=== PATIENT | male | born 1945 | race Caucasian/White ===

== ENCOUNTER 2016-07-25 09:53 | Inpatient (IN) | payer OTHER, BC ==
[2016-07-25 10:02] VITALS: BMI 23.8
--- NOTE | 2016-07-25 10:35 | PDOC ---
History of Present Illness <Cindy Castro - Last Filed: 07/25/16 13:14> - General History Source: Patient Exam Limitations: No Limitations - History of Present Illness Initial Comments: 07/25/16 10:41 71y F hx of htn, hl, presents with R 1st toe pain. The pt was sparring and as he kicked, his toe got caught on the mat. Pt complaining of pain to his toe originaly but has since improved. currently denies any pain, numbnes/tingling/ weakness. No other pain or injuries elsewhere. last tetanus man years ago. <Josesito Pantoja - Last Filed: 07/27/16 07:22> - General Chief Complaint: Injury Stated Complaint: RT TOE PAIN Time Seen by Provider: 07/25/16 10:34 Past History <Cindy Castro - Last Filed: 07/25/16 13:14> - Past Medical History Anemia: No Asthma: No Cancer: No Cardiac Disorders: No CVA: Yes (1998) COPD: No CHF: No Dementia: No Diabetes: No GI Disorders: No Disorders: No HTN: Yes Hypercholesterolemia: Yes Liver Disease: No Seizures: No Thyroid Disease: No - Surgical History Abdominal Surgery: No Appendectomy: No Cardiac Surgery: No Cholecystectomy: No Lung Surgery: No Neurologic Surgery: No Orthopedic Surgery: No - Psycho/Social/Smoking Cessation Hx Suicidal Ideation: No Smoking History: Never smoked Have you smoked in the past 12 months: No If you are a former smoker, when did you quit?: 20 YEARS AGO Information on smoking cessation initiated: No Hx Alcohol Use: No Drug/Substance Use Hx: Yes (2 glasses of wine) Substance Use Type: None Hx Substance Use Treatment: No <Josesito Pantoja - Last Filed: 07/27/16 07:22> - Past Medical History Allergies/Adverse Reactions: Allergies Allergy/AdvReac Type Severity Reaction Status Date / Time No Known Drug Allergies Allergy Verified 07/25/16 10:02 Home Medications: Ambulatory Orders Amlodipine Besylate 5 mg PO ASDIR 06/04/15 Aspirin [ASA -] 81 mg PO DAILY 06/04/15 Atorvastatin Calcium 10 mg PO ASDIR 06/04/15 [place]-3 Fatty Acids/Fish Oil [Fish Oil 1,000 mg Softgel] 3 each PO DAILY Cholecalciferol (Vitamin D3) [Vitamin D] 2,000 unit PO ACDIN 06/21/15 Review of Systems - Review of Systems Able to Perform ROS?: Yes Comments:: 07/25/16 10:43 Constitutional - no reported Fever, Chills, weakness, HEENT: no reported vision changes, sore throat Respiratory: no reported cough, sob, hemoptysis Cardiac: no reported chest pain, palpitations, light headedness, leg swelling Abd/GI: no reported abd pain, nausea, vomiting, blood per rectum, melena, diarrhea : no reported dysuria, frequency, discharge Musculskelatal - +R toe pain no reported back pain, joint swelling skin - no reported bruising, erythema, rash neurological: no reported headache, numbness, focal weakness, tingling, ataxia, weakness hematologic: no reported anemia, easy bruising, easy bleeding <Josesito Pantoja - Last Filed: 07/27/16 07:22> *Physical Exam - Vital Signs Last Vital Signs Temp Pulse Resp BP Pulse Ox 97.5 F L 71 18 157/83 99 07/25/16 10:00 07/25/16 10:00 07/25/16 10:00 07/25/16 10:00 07/25/16 10:00 <Cindy Castro - Last Filed: 07/25/16 13:14> - Vital Signs Last Vital Signs Temp Pulse Resp BP Pulse Ox 97.5 F L 71 18 157/83 99 07/25/16 10:00 07/25/16 10:00 07/25/16 10:00 07/25/16 10:00 07/25/16 10:00 - Physical Exam Comments: 07/25/16 10:45 GENERAL: The patient is awake, alert, and fully oriented, Nontoxic - in no acute distress. HEAD: Normocephalic, atraumatic. EXTREMITIES: Open dislocation of R great toe with exposed joint surface. sensation intact distall, cap refill <2 seconds in toe. No tenderness of ankles/ proximal foot, ankle/hips. Bleeding is controlled. <Josesito Pantoja - Last Filed: 07/27/16 07:22> Procedures - Consent Consent obtained: Verbal - Joint Reduction Right Joint Reduction Site: right: Finger (big toe) Pre-Procedure NV Exam: normal Conscious Sedation: No Finger Block: Thumb Reduction Attempts: 1 Anesthetic: 2% Lidocaine Amount (mL): 5 Post-Procedure NV Exam: normal Complications: No Post Joint Reduction Film: joint reduced Splint: Yes Immobilized: Yes Progress: 07/25/16 11:44 s/p irrgation of open dislocation with 1L of saline with betadine - Laceration/Wound Repair Right 1st digit Toe Wound Length: 2.6 to 5.0 cm Wound Explored: clean Wound's Depth, Shape: irregular Irrigated w/ Saline: Yes Betadine Prep: Yes Anesthesia: 1% Lidocaine Amount of Anesthetic (ccs): 5 Wound Debrided: minimal Wound Repaired With: Sutures Suture Size/Type: 3:0, nylon Number of Sutures: 3 Layer Closure: No Sterile Dressing Applied: Yes (xeroform/) Splint Applied: Yes (post op boot) <Josesito Pantoja - Last Filed: 07/27/16 07:22> Heart Score/ECG Review - ECG Impressions Comment:: 07/25/16 13:16 Twelve-lead EKG was performed and reviewed by me. There is normal sinus rhythm with a rate of 58 The axis is normal. The intervals are normal. There is normal R wave progression There are no ST or T wave abnormalities. Impression: Sinus bradycardia <Josesito Pantoja - Last Filed: 07/27/16 07:22> ED Treatment Course - LABORATORY CBC & Chemistry Diagram: 07/25/16 12:35 07/25/16 12:35 - RADIOLOGY Radiology Studies Ordered: 07/25/16 12:01 Toe XRay As reviewed by Dr. Sami Bourgeois IMPRESSION: Dislocation at great toe interphalangeal joint. Fracture at base proximal phalanx great toe. <Cindy Castro - Last Filed: 07/25/16 13:14> - LABORATORY CBC & Chemistry Diagram: 07/26/16 13:45 07/26/16 13:45 <Josesito Pantoja - Last Filed: 07/27/16 07:22> Medical Decision Making - Medical Decision Making 07/25/16 11:32 Dr. Nielsen was called at his office at 11:26. Dr. Woodruff is the covering physician. Awaiting call back. 07/25/16 12:00 Dr. Woodruff was called at his office at 12:00. Awaiting call back. 07/25/16 13:14 Dr. Woodruff returned call and spoke to Dr. Pantoja about the patient's care. Dr. Diggs was called at his office at 1:05. Awaiting call back. <Cindy Castro - Last Filed: 07/25/16 13:14> - Medical Decision Making 07/25/16 11:40 71y M with open dislocation of 1st big toe at the interphalangeal joint of r foot with most of articular surface of proximal phalanges visible xray revieals fracture at base of proximal phalanges large transverse laceration over the IP joint sensation intact in distal toe. digital block performed open joint surface was irrigated with 1L of saline with betadine dislocation was successfully reduced after 1 attempt, sensation intact distally after reduction pt given ancef and tetanus was uptodate. 07/25/16 11:45 07/25/16 14:[address] woodruff and dr. diggs agree w/ management, recommended closure with 3-4 tacking sutures 3 stitches placed to tack area closed for stabilization. recommend admission for iv abx as pt is at high risk for infection. Case discussed in detail with Dr. Dougherty including history, physical exam and ancillary studies. Admitting physician has assumed care for the patient, will follow all pending diagnostics and will complete the evaluation and treatment. <Josesito Pantoja - Last Filed: 07/27/16 07:22> *DC/Admit/Observation/Transfer <Cindy Castro - Last Filed: 07/25/16 13:14> - Discharge Dispostion Admit: Yes <Josesito Pantoja - Last Filed: 07/27/16 07:22> Diagnosis at time of Disposition: Dislocation of toe, right, open Qualifiers: Encounter type: initial encounter Qualified Code(s): S93.104A - Unspecified dislocation of right toe(s), initial encounter Fracture of right toe Qualifiers: Encounter type: initial encounter Toe: great toe Fracture type: open Phalanx: proximal Fracture alignment: nondisplaced Qualified Code(s): S92.414B - Nondisplaced fracture of proximal phalanx of right great toe, initial encounter for open fracture - Referrals
[2016-07-25] MEDS ORDERED: CEFAZOLIN 1 GM in DEXTROSE 5%-WATER - 50 ML IVPB ONE (10:46)
[2016-07-25] MEDS ORDERED: LIDOCAINE HCL 2% (20ML MULTI-DOSE VIAL) NR ONE (10:58)
[2016-07-25] MEDS ORDERED: CEFAZOLIN (PRE-DOCKED) 50 ML IVPB ONE (12:03)
[2016-07-25 12:42] LABS: EOSINOPHIL 2.7 % (0-4.5); MCH 30.1 pg (25.7-33.7); MCHC 33.6 g/dl (32.0-35.9); MEAN CELL VOLUME 89.6 fl (80-96); MEAN PLT VOLUME 6.9 fl (7.5-11.1); NEUTROPHILS 66.9 % (42.8-82.8); PLATELET COUNT 244 K/MM3 (134-434); RDW 13.5 % (11.9-15.9); WHITE BLOOD COUNT 6.6 K/mm3 (4.0-10.0)
[2016-07-25 13:03] LABS: INR 1.15 (0.82-1.09); PROTHROMBIN TIME (PATIENT) 12.7 SEC (9.98-11.88)
--- NOTE | 2016-07-25 13:10 | HP ---
Admitting History and Physical - Primary Care Physician PCP: Taylor Dougherty S - Admission Chief Complaint: R big toe open fracture History of Present Illness: 71y F hx of htn, high chol, presents with R 1st toe pain. The pt was sparring and as he kicked, his toe got caught on the mat. Pt complaining of pain to his toe originaly but has since improved. currently denies any pain, numbness/ tingling/weakness. No other pain or injuries elsewhere. last tetanus many years ago. History Source: Patient, Medical Record Limitations to Obtaining History: No Limitations - Past Medical History Cardiovascular: Yes: HTN, Hyperlipdemia - Smoking History Smoking history: Never smoked Have you smoked in the past 12 months: No If you are a former smoker, when did you quit?: 20 YEARS AGO - Alcohol/Substance Use Hx Alcohol Use: No History of Substance Use: reports: None - Social History Usual Living Arrangement: Yes: With Spouse ADL: Independent History of Recent Travel: No Home Medications - Allergies Allergies/Adverse Reactions: Allergies Allergy/AdvReac Type Severity Reaction Status Date / Time No Known Drug Allergies Allergy Verified 07/25/16 10:02 - Home Medications Home Medications: Ambulatory Orders Amlodipine Besylate 5 mg PO ASDIR 06/04/15 Aspirin [ASA -] 81 mg PO DAILY 06/04/15 Atorvastatin Calcium 10 mg PO ASDIR 06/04/15 [place]-3 Fatty Acids/Fish Oil [Fish Oil 1,000 mg Softgel] 3 each PO DAILY Cholecalciferol (Vitamin D3) [Vitamin D] 2,000 unit PO ACDIN 06/21/15 Family Disease History - Family Disease History Family History: Unremarkable Review of Systems - Review of Systems Constitutional: denies: Chills, Fever, Lethargy Eyes: denies: Blurred Vision, Double Vision HENT: denies: Difficult Swallowing, Ear Pain Neck: denies: Stiffness, Tenderness Cardiovascular: denies: Chest Pain, Shortness of Breath Respiratory: denies: Cough, SOB Gastrointestinal: reports: Vomiting. denies: Abdominal Pain, Bloating, Constipation, Diarrhea Genitourinary: denies: Dysuria, Flank Pain Musculoskeletal: denies: Back Pain, Extremity Pain Neurological: denies: Change in LOC, Change in Speech, Confusion, Pre-Existing Deficit, Seizure, Syncope, Unsteady Gait Hematology/Lymphatic: denies: Easily Bruised, Excessive Bleeding Psychiatric: denies: Altered Sleep Pattern, Anxiety, Depression, Suicidal Physical Examination Vital Signs: Vital Signs Temperature 97.5 F L 07/25/16 10:00 Pulse Rate 71 07/25/16 10:00 Respiratory Rate 18 07/25/16 10:00 Blood Pressure 157/83 07/25/16 10:00 O2 Sat by Pulse Oximetry (%) 99 07/25/16 10:00 Constitutional: Yes: No Distress, Calm Eyes: Yes: Conjunctiva Clear HENT: Yes: Atraumatic Neck: Yes: Supple Cardiovascular: Yes: Regular Rate and Rhythm Respiratory: Yes: CTA Bilaterally Gastrointestinal: Yes: Soft. No: Distention, Tenderness Musculoskeletal: No: Joint Stiffness, Joint Swelling Extremities: Yes: Other (R big toe with open fracture s/p reduction and wound cleaning in ER had exposed bone per ER dr). No: Cold, Cool Edema: No Peripheral Pulses WNL: Yes Neurological: Yes: WNL, Alert, Oriented ...Motor Strength: WNL Psychiatric: Yes: WNL, Alert, Oriented. No: Agitated, Suicidal Ideation Labs: CBC, BMP 07/25/16 12:35 Imaging - Results X-ray: Report Reviewed Other: Report Reviewed Assessment/Plan 71y F hx of htn, high chol presents with R 1st toe pain. The pt was sparring and as he kicked, his toe got caught on the mat. Pt complaining of pain to his toe originally but has since improved. currently denies any pain, numbness/ tingling/weakness. No other pain or injuries elsewhere. xrays c/w R big toe fracture, by exam open fracture with exposed bone tetanus shot given in ER PAIN meds prn IV antibiotics wound cleaned and reduced in ER admit for ID and ortho/podiatry eval d/w pt and staff, d/w at bedside
[2016-07-25] MEDS ORDERED: ACETAMINOPHEN 325 MG TABLET (FP) PO PRN (13:12)
[2016-07-25] MEDS ORDERED: HYDROmorphone HCL CARPU-JECT 1 MG/1 ML DISP.SYRIN IVPB PRN (13:12)
[2016-07-25 13:14] LABS: ALBUMIN 3.8 g/dl (3.4-5.0); ANION GAP 8 (8-16); CALCIUM 8.9 mg/dL (8.5-10.1); CO2 29 mmol/L (21-32); GLUCOSE,RANDOM 91 mg/dL (74-106)
[2016-07-25 13:16] LABS: ALK PHOS 54 U/L (45-117); BILIRUBIN,TOTAL 0.6 mg/dL (0.2-1.0); CREATININE 0.9 mg/dL (0.7-1.3); SGOT/AST 19 U/L (15-37); SGPT/ALT 26 U/L (12-78); TOT PROT 6.6 g/dl (6.4-8.2)
[2016-07-25] MEDS ORDERED: DIPHTH,PERTUSS(ACELL),TET VAC 0.5 ML VIAL IM ONE (14:06)
[2016-07-25] MEDS ORDERED: VANCOMYCIN 1 GRAM (PRE-DOCKED) 1,000 MG/250 ML BAG IVPB ONE (16:15)
[2016-07-25] MEDS: amLODIPine BESYLATE 5 MG TABLET (FP) PO SCH (17:19)
[2016-07-25] MEDS: CEFAZOLIN (PRE-DOCKED) 50 ML IVPB SCH (17:19)
[2016-07-25] MEDS ORDERED: VANCOMYCIN 1 GRAM (PRE-DOCKED) 250 ML IVPB SCH (20:00)
--- NOTE | 2016-07-25 21:00 | EKG ---
Test Reason : Blood Pressure : / mmHG Vent. Rate : 058 BPM Atrial Rate : 058 BPM P-R Int : 202 ms QRS Dur : 090 ms QT Int : 424 ms P-R-T Axes : 013 -21 -01 degrees QTc Int : 416 ms SINUS BRADYCARDIA OTHERWISE NORMAL ECG WHEN COMPARED WITH ECG OF 04-JUN-2015 08:38, CRITERIA FOR SEPTAL INFARCT ARE NO LONGER PRESENT Confirmed by SILVERIO JUNIOR MD ([id number]) on 07/25/2016 9:00:31 PM Referred By: Confirmed By:SILVERIO JUNIOR MD
[2016-07-25] MEDS: HEPARIN NA (PORCINE) 5,000 UNITS/ML 1ML VIAL SQ SCH (21:36)
[2016-07-25] MEDS: ATORVASTATIN CA 10 MG TABLET (FP) PO SCH (21:37)
[2016-07-26] MEDS: CEFAZOLIN (PRE-DOCKED) 50 ML IVPB SCH ×2 (02:08→09:23)
[2016-07-26] MEDS: VANCOMYCIN 1 GRAM (PRE-DOCKED) 250 ML IVPB SCH ×2 (04:41→16:17)
--- NOTE | 2016-07-26 08:46 | CONSULT ---
Consult Consult Specialty:: Podiatry Referred by:: Dr. Dougherty Reason for Consultation:: traumatic dislocation of the right hallux - History of Present Illness Chief Complaint: traumatic dislocation of the right hallux interphalangeal joint History of Present Illness: Yesterday, 07/25/2016 patient was sparring on a karate mat and dislocated his hallux when attempting a kick. He reports he did not feel pain and noticed the injury when he looked down. He was treated in the emergency room yesterday, where copious irrigation was performed followed by reduction into normal anatomic position and placement of 3 cutaneous sutures. Iv antibiotics were given. Patient remains on antibiotics presumably for two days. - History Source History Provided By: Medical Record - Past Medical History Cardio/Vascular: Yes: HTN, Hyperlipdemia - Alcohol/Substance Use Hx Alcohol Use: No History of Substance Use: reports: None - Smoking History Smoking history: Never smoked Have you smoked in the past 12 months: No If you are a former smoker, when did you quit?: 20 YEARS AGO - Social History ADL: Independent History of Recent Travel: No Home Medications - Allergies Allergies/Adverse Reactions: Allergies Allergy/AdvReac Type Severity Reaction Status Date / Time No Known Drug Allergies Allergy Verified 07/25/16 10:02 - Home Medications Home Medications: Ambulatory Orders Amlodipine Besylate 5 mg PO ASDIR 06/04/15 Aspirin [ASA -] 81 mg PO DAILY 06/04/15 Atorvastatin Calcium 10 mg PO ASDIR 06/04/15 [place]-3 Fatty Acids/Fish Oil [Fish Oil 1,000 mg Softgel] 3 each PO DAILY Cholecalciferol (Vitamin D3) [Vitamin D] 2,000 unit PO ACDIN 06/21/15 Physical Exam Vital Signs: Vital Signs Temperature 98.3 F 07/26/16 05:30 Pulse Rate 61 07/26/16 05:30 Respiratory Rate 18 07/25/16 21:00 Blood Pressure 116/70 07/26/16 05:30 O2 Sat by Pulse Oximetry (%) 100 07/25/16 15:07 Musculoskeletal: Yes: Other (Right first mpj is bulbous and rigid limiting weight bearing flexibily of the medial column. this is significant in that weight bearing will put stress on the interphalangeal joint (injured right hallux ipj)) Extremities: Yes: Other (Pedal pulses are +2/4 bilaterally and skin is pink and warm. Temp and temp gradient are normal and equal.) Edema: LLE: Trace, RLE: Trace Integumentary: Yes: Other (skin of the right hallux is pink and temp is normal and equal to the surrounding tissue.) Wound/Incision: Yes: Other (Right hallux dorsal lateral transverse tear measuring 2.5cm long. it overlays the dorsal lateral quadrant of the toe suggesting only that the dorsal lateral neurovascular bundle to the toe was injured. No sign of erythema, edema, necrosis, or drainage is observed.) Assessment/Plan Assessment Clean traumatic open dislocation of the right hallux interphalangeal joint. No sign of infection is noted. Normal anatomic reduction has been achieved. No sign of secondary tissue necrosis is present. Stiffness of the metatarsal phalangeal joint makes it even more important that the injured site be protected from stress until it heals. Plan Patient was advised to ambulate with injured foot in front at all times to prevent body weight from passing over the injured hallux. Patient was advised that no sign of vascular compromise or infection is present in the toe at this time, but continued observation is advisable until the toe heals. Patient was advised to continue on antibiotics PO after discharged. Patient was advised to follow up with me in my office on discharge. I will change the bandage at that time. Patient is not to change the bandage himself. I provided the patient with my office and cell phone information.
[2016-07-26] MEDS: amLODIPine BESYLATE 5 MG TABLET (FP) PO SCH (09:23)
[2016-07-26] MEDS: ASPIRIN 81 MG CHEWABLE TABLETS PO SCH (09:23)
[2016-07-26] MEDS: HEPARIN NA (PORCINE) 5,000 UNITS/ML 1ML VIAL SQ SCH ×2 (09:23→21:35)
--- NOTE | 2016-07-26 10:12 | CONSULT ---
Consult - text type - Consultation Consultation Note: FULL CONSULT DICTATED IMP: LEFT GREAT TOE IP DISLOCATION - OPEN PLAN: IV ABX X 24 HOURS MORE, F/U WITH [employer] UPON DC TOMORROW
--- NOTE | 2016-07-26 11:59 | CONS ---
DATE OF CONSULTATION: DATE OF DICTATION: 07/26/2016 Patient is a 71-year-old male status post tripping and fall, injuring his left great toe. Was seen in the emergency room, where he was diagnosed as having an open left great toe IP fracture/dislocation. Patient was irrigated copiously in the emergency room, where closed reduction was performed. The skin was loosely tacked together with some nylon. The patient was admitted with IV antibiotics and some tetanus. Patient denies smoking or diabetes. PHYSICAL EXAMINATION: Musculoskeletal: He has a transverse laceration on the dorsum of his IP and proximal phalanx, which has been loosely closed with some 3-0 nylon suture. Overall alignment is good. He does have the ability of flexion and extension of his IP and his MP joint. Brisk capillary refill. Warm extremity. No erythema, drainage. X-rays reviewed; showed the pre and postreduction x-rays of his IP dislocation of his great toe. There is question of wether there is a small corner fracture at the proximal lateral border of his proximal phalanx. IMPRESSION: Open dislocation of his left great toe. PLAN: Patient should get another 24 hours of IV antibiotics, postoperative shoe, and follow up as an outpatient with manager commercial. I believe the patient already has an appointment with Dr. Galo upon discharge tomorrow. BENI LUCAS M.D. [id number]
--- NOTE | 2016-07-26 12:58 | PN ---
Progress Note, Physician History of Present Illness: Pt. w/o fever, chills, right toe pain, right foot pain. Pt. w/o SOB, CP, palp, abd pain, diarrhea - Current Medication List Current Medications: Active Medications Acetaminophen (Tylenol -) 650 mg PO Q6H PRN PRN Reason: PAIN LEVEL 1-5 Amlodipine Besylate (Norvasc -) 5 mg PO DAILY [facility] Last Admin: 07/26/16 09:23 Dose: 5 mg Aspirin (Asa -) 81 mg PO DAILY [facility] Last Admin: 07/26/16 09:23 Dose: 81 mg Atorvastatin Calcium (Lipitor -) 10 mg PO HS [facility] Last Admin: 07/25/16 21:37 Dose: 10 mg Heparin Sodium (Porcine) (Heparin -) 5,000 unit SQ BID [facility] Last Admin: 07/26/16 09:23 Dose: 5,000 unit Hydromorphone HCl (Dilaudid Injection -) 1 mg IVPB Q6H PRN PRN Reason: PAIN LEVEL 6-10 Cefazolin Sodium (Ancef 1gm Ivpb (Pre-Docked)) 50 mls @ 100 mls/hr IVPB Q8H-IV [facility] Last Admin: 07/26/16 09:23 Dose: 100 mls/hr Vancomycin HCl (Vancomycin (Pre-Docked)) 250 mls @ 200 mls/hr IVPB Q12H [facility] Last Admin: 07/26/16 04:41 Dose: 200 mls/hr - Objective Vital Signs: Vital Signs Temperature 98.3 F 07/26/16 05:30 Pulse Rate 63 07/26/16 10:00 Respiratory Rate 18 07/26/16 10:00 Blood Pressure 122/71 07/26/16 10:00 O2 Sat by Pulse Oximetry (%) 100 07/25/16 15:07 Constitutional: Yes: No Distress, Calm Cardiovascular: Yes: Regular Rate and Rhythm, S1, S2 Respiratory: Yes: Regular, CTA Bilaterally. No: Rales Gastrointestinal: Yes: Normal Bowel Sounds, Soft. No: Tenderness Extremities: Yes: Other (Right toe with clean dressing) Edema: No Labs: INR, PTT INR 1.15 (0.82-1.09) H 07/25/16 12:35 Problem List - Problems (1) Dislocation of toe, right, open Assessment/Plan: Podiatry and Ortho consult appreciated IV abtx for at least 24 hours To f/u labs, fever cuver Code(s): S93.104A - UNSPECIFIED DISLOCATION OF RIGHT TOE(S), INITIAL ENCOUNTER S91.104A - UNSP OPN WND RIGHT LESSER TOE(S) W/O DAMAGE TO NAIL, INIT Qualifiers: Encounter type: initial encounter Qualified Code(s): S93.104A - Unspecified dislocation of right toe(s), initial encounter; S91.104A - Unspecified open wound of right lesser toe(s) without damage to nail, initial encounter (2) CVA (cerebral vascular accident) Code(s): I63.9 - CEREBRAL INFARCTION, UNSPECIFIED Assessment/Plan AM labs
[2016-07-26 14:08] LABS: MCHC 33.9 g/dl (32.0-35.9); MEAN CELL VOLUME 88.7 fl (80-96); MEAN PLT VOLUME 7.1 fl (7.5-11.1); PLATELET COUNT 255 K/MM3 (134-434); RDW 13.4 % (11.9-15.9)
[2016-07-26 14:29] LABS: CALCIUM 8.6 mg/dL (8.5-10.1); CREATININE 1.2 mg/dL (0.7-1.3)
--- NOTE | 2016-07-26 16:11 | PN ---
Progress Note (short form) - Note Progress Note: ID Consult dictated S/P open dislocation R distal phalanx Risk for post-traumatic osteomyelitis Empiric vancomycin/ceftriaxone Surgical follow up
[2016-07-26] MEDS ORDERED: CEFTRIAXONE 2 GM in DEXTROSE 5%-WATER - 100 ML IVPB SCH (16:15)
[2016-07-26] MEDS: cefTRIAXone 2 GM/100 ML BAG (PRE-DOCKED) IVPB SCH (16:47)
--- NOTE | 2016-07-26 16:59 | CONS ---
DATE OF CONSULTATION: HISTORY: The patient is a 71-year-old male who is evaluated for an open dislocation of the right great toe. The patient was sparring at his [facility] [place] on July 25, 2016. The patient states he was sparring and as he kicked his right great toe got caught on the mat. He did not immediately experience pain. He took off his boot and noted a wound with protruding bone. He was taken to the emergency room at [facility] where the wound was copiously irrigated and was reduced. The laceration was sutured. He empirically received cefazolin and vancomycin. At the present time, he has no complaints of pain. His right great toe area remains swollen. He has not noted any purulent drainage. No associated fever or chills. The patient is nondiabetic and does not have a history of peripheral vascular disease. PAST MEDICAL HISTORY: Positive for hypertension, hyperlipidemia. PAST SURGICAL HISTORY: Status post cataract surgery. ALLERGIES: No known allergies. MEDICATIONS: Norvasc, aspirin, Lipitor. SOCIAL HISTORY: Former smoker. Stopped years ago. No history of alcohol or illicit drug use. SYSTEMS REVIEW: Neurologic: No loss of consciousness, seizure activity, or focal weakness. Cardiac: Negative chest pain or palpitations. Respiratory: Negative cough or sputum production. Gastrointestinal: Negative vomiting or diarrhea. Genitourinary: Negative for urinary tract infection. LABORATORY DATA: White count 7, hematocrit 40.9, platelet count 255, BUN 15, creatinine 1.2. No wound cultures are available. PHYSICAL EXAMINATION: General: He is awake and alert. He is not acutely toxic appearing. Vital Signs: Temperature 98.2, blood pressure 116/58, pulse 64, regular, respirations 18 per minute. HEENT: Sclerae anicteric. Heart: Sounds S1, S2 with a 1/6 pansystolic murmur. Lungs: Clear. Abdomen: Soft. No tenderness elicited. No mass, rebound, or rigidity. Extremities: Negative for pedal edema. Examination of the right foot, there is mild, diffuse swelling of the right great toe as well as the area of the 1st metatarsal head. There is tenderness and slight warmth. The surgical wound is sutured. No evidence of wound infection. IMPRESSION: 1. Status post open dislocation of the right distal phalanx. 2. Risk for posttraumatic osteomyelitis. PLAN: Empiric antibiotic coverage for skin floor including the possibility of resistant staphylococcus with vancomycin and ceftriaxone. The patient was informed of the approximately 25% risk for posttraumatic osteomyelitis. Risk factors include severity of injury, comorbidities including diabetes and peripheral vascular disease, degree of wound contamination. The patient has no history of diabetes or peripheral vascular disease, and it appears that the injury occurred on a relatively clean surface and was promptly irrigated. We will monitor for infection. Surgical and podiatric follow up. We will follow. Thank you for the kind referral. SHIELA PICKETT M.D. [id number]
[2016-07-26 18:23] VITALS: TEMP 97.8
[2016-07-26] MEDS: ATORVASTATIN CA 10 MG TABLET (FP) PO SCH (21:35)
[2016-07-27] MEDS: VANCOMYCIN 1 GRAM (PRE-DOCKED) 250 ML IVPB SCH (04:20)
[2016-07-27 07:30] LABS: MCH 31.1 pg (25.7-33.7); MCHC 35.1 g/dl (32.0-35.9); MEAN CELL VOLUME 88.6 fl (80-96); PLATELET COUNT 241 K/MM3 (134-434); RDW 13.2 % (11.9-15.9); WHITE BLOOD COUNT 7.2 K/mm3 (4.0-10.0)
[2016-07-27 07:53] LABS: CALCIUM 8.4 mg/dL (8.5-10.1)
[2016-07-27] MEDS: ASPIRIN 81 MG CHEWABLE TABLETS PO SCH (09:03)
[2016-07-27] MEDS: amLODIPine BESYLATE 5 MG TABLET (FP) PO SCH (09:05)
[2016-07-27] MEDS: cefTRIAXone 2 GM/100 ML BAG (PRE-DOCKED) IVPB SCH (09:05)
[2016-07-27] MEDS: HEPARIN NA (PORCINE) 5,000 UNITS/ML 1ML VIAL SQ SCH (09:05)
--- NOTE | 2016-07-27 09:36 | PN ---
Progress Note, Physician History of Present Illness: No c/o foot pain No fever/ chills Tolerating antibiotics - Current Medication List Current Medications: Active Medications Acetaminophen (Tylenol -) 650 mg PO Q6H PRN PRN Reason: PAIN LEVEL 1-5 Amlodipine Besylate (Norvasc -) 5 mg PO DAILY [facility] Last Admin: 07/27/16 09:05 Dose: 5 mg Aspirin (Asa -) 81 mg PO DAILY [facility] Last Admin: 07/27/16 09:03 Dose: 81 mg Atorvastatin Calcium (Lipitor -) 10 mg PO HS [facility] Last Admin: 07/26/16 21:35 Dose: 10 mg Ceftriaxone Sodium (Rocephin 2gm Ivpb (Pre-Docked)) 2 gm IVPB DAILY [facility] Last Admin: 07/27/16 09:05 Dose: 2 gm Heparin Sodium (Porcine) (Heparin -) 5,000 unit SQ BID [facility] Last Admin: 07/27/16 09:05 Dose: 5,000 unit Hydromorphone HCl (Dilaudid Injection -) 1 mg IVPB Q6H PRN PRN Reason: PAIN LEVEL 6-10 Vancomycin HCl (Vancomycin (Pre-Docked)) 250 mls @ 200 mls/hr IVPB Q12H [facility] Last Admin: 07/27/16 04:20 Dose: 200 mls/hr - Objective Vital Signs: Vital Signs Temperature 97.8 F 07/27/16 05:59 Pulse Rate 60 07/27/16 05:59 Respiratory Rate 20 07/27/16 05:59 Blood Pressure 132/75 07/27/16 05:59 O2 Sat by Pulse Oximetry (%) 100 07/26/16 21:00 Constitutional: Yes: No Distress Eyes: Yes: Conjunctiva Clear Cardiovascular: Yes: Regular Rate and Rhythm, S1, S2 Respiratory: Yes: CTA Bilaterally Gastrointestinal: Yes: Normal Bowel Sounds, Soft. 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
--- NOTE | 2016-07-27 10:01 | DS ---
Physical Examination Vital Signs: Vital Signs Temperature 97.8 F 07/27/16 05:59 Pulse Rate 60 07/27/16 05:59 Respiratory Rate 20 07/27/16 05:59 Blood Pressure 132/75 07/27/16 05:59 O2 Sat by Pulse Oximetry (%) 100 07/26/16 21:00 Findings/Remarks: Pt. w/o fever, chills, right foot or toe pain. Pt. w/o abd pain, diarrhea, SOB, palp., CP. Case was d/w Dr. Ocasio- pt. is OK for DC on Augmentin 875/125 mg BID for 1 week. Constitutional: Yes: No Distress, Calm Cardiovascular: Yes: Regular Rate and Rhythm, S1, S2 Respiratory: Yes: Regular, CTA Bilaterally. No: Rales Gastrointestinal: Yes: Normal Bowel Sounds, Soft. No: Palpable Mass, Tenderness Extremities: Yes: Other (Right toe with clean dressing) Edema: No Neurological: Yes: Alert, Oriented Labs: CBC, BMP 07/27/16 06:25 07/27/16 06:25 Discharge Summary Reason For Visit: PHALANX OF TOE RIGHT FOOT OPEN DISLOCATION Current Active Problems Dislocation of toe, right, open (Acute) CVA (cerebral vascular accident) (Acute) Procedures: Principal: Right foot XR's Hospital Course: Pt came to ER with right big toe disclocation, with opened wound; it was reduced in ER and sutured in ER; pt was admitted for IV abtx. Pt was seen by Ortho (Dr. Woodruff), Podiatry ( Dr. Galo), ID ( Dr. Ocasio). Pt. to be DC'ed today with PO abtx and f/u with Dr. Galo. Condition: Improved - Instructions Diet, Activity, Other Instructions: Low salt, low cholesterol. Right foot weight bearing per Dr. Galo. No physical activities until cleared by Dr. Galo Referrals: Tyler Galo MD [Staff Physician] - (today or tomorrow) Leonel Dougherty MD [Primary Care Provider] - (as scheduled or in 1-2 weeks) - Home Medications Comprehensive Discharge Medication List: Ambulatory Orders Amlodipine Besylate 5 mg PO ASDIR 06/04/15 Aspirin [ASA -] 81 mg PO DAILY 06/04/15 Atorvastatin Calcium 10 mg PO ASDIR 06/04/15 [place]-3 Fatty Acids/Fish Oil [Fish Oil 1,000 mg Softgel] 3 each PO DAILY Cholecalciferol (Vitamin D3) [Vitamin D] 2,000 unit PO ACDIN 06/21/15
[2016-07-27 11:13] VITALS: BP 140/80; PULSE 63
[2016-07-27] MEDS ORDERED: AMOX TR/POT CLAV 875MG/125MG TABLETS (FP) PO SCH (22:00)
== END 2016-07-27 11:10 | disposition home or self-care (01) | DRG 563 ==
LOC: JER 09:53 → J6S 13:17
PROVIDERS: ADMIT Specialist; ATTEND Specialist
DX: S92.414B Nondisplaced fracture of proximal phalanx of right great toe, initial encounter for open fracture (principal); S93.111A Dislocation of interphalangeal joint of right great toe, initial encounter; W19.XXXA Unspecified fall, initial encounter; Y93.9 Activity, unspecified; Y92.89 Other specified places as the place of occurrence of the external cause; Y99.9 Unspecified external cause status; I10 Essential (primary) hypertension; E78.5 Hyperlipidemia, unspecified
CPT/HCPCS: 36415; 73660-TC; 80048; 80053; 85025; 85027; 85610; 85651; 86140; 86850; 86900; 86901; 93005; 93010; 99282-25; J1644

== ENCOUNTER 2021-11-23 17:54 | Emergency (ER) | payer OTHER, BC ==
[2021-11-23 17:58] VITALS: BP 157/89; PULSE 82; TEMP 97; BMI 22.3
== END 2021-11-23 21:56 | disposition home or self-care (01) ==
LOC: JER 17:54
DX: M25.552 Pain in left hip (principal); V28.0XXA Motorcycle driver injured in noncollision transport accident in nontraffic accident, initial encounter
CPT/HCPCS: 72170-TC-FY; 73502-TC-LT-FY; 73521-TC-FY; 99284-25

== ENCOUNTER 2023-09-10 04:32 | Day surgery (SDC) | payer OTHER, BC ==
[2023-09-08 11:08] VITALS: BMI 22.0
[2023-09-10 10:59] VITALS: TEMP 97.5
[2023-09-10 11:07] VITALS: PULSE 58
[2023-09-10 11:23] VITALS: BP 118/64; RESP 15
== END 2023-09-10 11:27 | disposition home or self-care (01) ==
LOC: JASU-ENDO 04:32
PROVIDERS: ATTEND Internal Medicine Gastroenterology
PROC: 0DJD8ZZ Inspection of Lower Intestinal Tract, Via Natural or Artificial Opening Endoscopic (ICD-10-PCS; principal; 2023-09-10 11:00)
DX: Z12.11 Encounter for screening for malignant neoplasm of colon (principal); K64.8 Other hemorrhoids; K57.30 Diverticulosis of large intestine without perforation or abscess without bleeding; R19.5 Other fecal abnormalities